=== PATIENT | female | born 1980 | race Caucasian/White ===

== ENCOUNTER 2016-09-06 14:00 | Emergency (ER) | payer MEDICAID ==
[~2016-09-06] VITALS: Ht 154.9 cm; Wt 63.5 kg
[~2016-09-06 14:00] MED LIST: CYCLOBENZAPRINE10 MG ORAL; FIORICET1 EA ORAL; IBUPROFEN400 MG ORAL; IBUPROFEN600 MG ORAL; NKM
[2016-09-06 14:06] VITALS: BP 122/79
[2016-09-06] MEDS ORDERED: NKM (14:10)
[2016-09-06] MEDS ORDERED: Bacitracin Oint UD TOPIC ONE (15:00)
[2016-09-06] MEDS ORDERED: Lidocaine 1% MPF 10mg/ml 5ml IM ONE (15:00)
[2016-09-06] MEDS ORDERED: CEPHALEXIN500 MG ORAL (15:44)
[2016-09-06 16:10] VITALS: BP 127/75
--- NOTE | 2016-09-06 16:53 | Diagnostic Imaging Report ---
Indication: PAIN Technique: 3 views right hand Comparison: none Findings: There is a nondisplaced fracture of the proximal aspect of the fourth distal phalanx. No other acute fractures. No dislocations. The joint spaces are preserved Impression: Positive for fourth distal phalangeal fracture Findings discussed by phone with Dr. Brown the emergency room at the time of interpretation
--- NOTE | 2016-09-07 09:55 | Emergency Room Report ---
History of Present Illness General Chief Complaint: Laceration Source: Patient Present Illness HPI The patient is a 36 yo F presenting for L ring finger pain after having the finger get stuck in her car door today. The patient states the door closed onto the finger and she is now experiencing a 8/10 dull ache to the area. No radiation of pain. Patient does admit to numbness of the finger tip. The patient noticed bleeding at that time. The patient denies any other symptoms. The patient states last tetanus shot was less than 10 years prior. Allergies: Coded Allergies: No Known Allergies (Unverified , 01/10/15) Patient History Past Medical History: see triage record Pertinent Family History: none Last Menstrual Period: 09/04/2016 Immunizations: UTD Reviewed Nursing Documentation: PMH: Agreed, PSxH: Agreed Nursing Documentation-PMH Past Medical History: No Stated History Review of Systems All Other Systems: negative except mentioned in HPI Physical Exam Vital Signs Date Time Temp Pulse Resp B/P Pulse Ox O2 Delivery O2 Flow Rate FiO2 09/06/16 14:06 98.1 58 14 122/79 98 Room Air Sp02 EP Interpretation: reviewed, normal General Appearance: no apparent distress, alert, GCS 15, non-toxic Head: normocephalic, atraumatic Eyes: bilateral eye PERRL, bilateral eye normal inspection ENT: hearing grossly normal, normal pharynx, no angioedema, normal voice Musculoskeletal: normal range of motion, tender - TTP over distal L 4th digit Neurologic: alert, oriented x3, responsive, motor strength/tone normal, sensory intact, speech normal Psychiatric: judgement/insight normal, memory normal, mood/affect normal, no suicidal/homicidal ideation Reflexes: 3+ bicep (R), 3+ bicep (L), 3+ tricep (R), 3+ tricep (L), 3+ knee (R) , 3+ knee (L) Skin: no rash, well hydrated, normal turgor, laceration - L 4th digit distal to DIPJ and proximal to nailbed: 3cm linear superficial laceration. No avulsion of skin. Unable to probe to bone. Nail not involved. Lymphatic: no adenopathy Procedures Splinting Splinting : Consent: Verbal Location: L hand 4th finger Pre-Made Type: metal Splint: finger Pre-Proc Neuro Vasc Exam: normal Post-Proc Neuro Vasc Exam: normal Patient Tolerated: Well Complications: None Laceration/Wound Repair Laceration/Wound Repair : Consent: Verbal Wound Location: upper extremity - L hand 4th finger Wound's Depth, Shape: superficial, linear Wound Length (cm): 3 Wound Explored: clean Irrigated w/ Saline (ccs): 300 Betadine Prep?: Yes Anesthesia: 1% Lidocaine - digital block Volume Anesthetic (ccs): 4 Wound Debrided: minimal Wound Repaired With: sutures Suture Size/Type: 5:0, proline Number of Sutures: 4 Layer Closure?: No Sterile Dressing Applied?: Yes Splint Applied?: Yes Type of Splint Applied: metal finger Sling Applied?: No Patient Tolerated: Well Complications: None Medical Decision Making PA Attestation Dr. Brown is my supervising physician. Patient management was discussed with my supervising physician Diagnostic Impression: Primary Impression: Open fracture of finger ER Course The patient is a 36 yo F presenting for L ring finger pain Ddx considered include but not limited to fracture, tendon/ligament injury, avulsion, nerve damage PE: vitals WNL. L 4th digit distal to DIPJ and proximal to nailbed: 3cm linear superficial laceration. No avulsion of skin. Unable to probe to bone. Nail not involved.. No subungual hematoma. SILT. Xray of hand showas fracture of distal L 4th phalanx The wound was irrigated with pressured normal saline and cleaned with betadine. A 27g needle was used to administer 4mL of lidocaine w.o epi for digital block. 4 sutures were placed with 5-0 prolene. The wound was well approximated and the patient tolerated the procedure well. The wound was then cleaned and bacitracin was applied. A metal splint was applied to the finger. Patient given a shot of Rocephin due to possible open fracture. The patient is NY'ed home with prescription for keflex and will FU with PMD. ER precautions given and suture instructions given. Other X-Ray Diagnostic Results Other X-Ray Diagnostic Results : X-Ray Ordered: L hand Date: Sep 06, 2016 EP Interpretation: Yes Findings: other - fourth distal phalangeal fracture Number of Views: 3 PA Scribe Text I'm acting as scribe for my supervising physician. My supervising physician's interpretation of the L hand xrays are there are is a fracture of the 4th distal phalanx Last Vital Signs Date Time Temp Pulse Resp B/P Pulse Ox O2 Delivery O2 Flow Rate FiO2 09/06/16 16:10 52 16 127/75 99 Room Air 09/06/16 14:06 98.1 Status: improved Disposition: HOME, SELF-CARE Condition: Improved Scripts Cephalexin* (KEFLEX*) 500 Mg Capsule 500 MG ORAL EVERY 12 HOURS, #14 CAP 0 Refills Prov: JERONIMO COVINGTON 09/06/16 Patient Instructions: Laceration Care, Adult, Finger Fracture Additional Instructions: I discussed my findings with the patient. All questions and concerns have been answered. Treatment and medication compliance have been addressed. I advised the patient that they need to follow up with PMD in 7 days for wound check and suture removal. If you are unable to see PMD, return to the ED in 7 days. Return to ED if pain remains or worsens, you notice discharge from the wound, the wound continues to bleed, the suture/s fall out, you notice a fever or chills, or for any reason. Patient is advised to keep the wound clean and dry. Patient verbalized understanding of discharge instructions. JERONIMO COVINGTON Sep 07, 2016 09:55
== END 2016-09-06 16:10 | disposition home or self-care (01) ==
LOC: EMR 14:30
DX: S62.665B Nondisplaced fracture of distal phalanx of left ring finger, initial encounter for open fracture (principal); W23.0XXA Caught, crushed, jammed, or pinched between moving objects, initial encounter; Y92.810 Car as the place of occurrence of the external cause
CPT/HCPCS: 12002; 29280; 73130; 96372; 99284; J0696; Z7502

== ENCOUNTER 2016-09-13 23:30 | Emergency (ER) | payer MEDICAID ==
[~2016-09-13] VITALS: Ht 154.9 cm; Wt 63.5 kg
[~2016-09-13 23:30] MED LIST changes: +CEPHALEXIN500 MG ORAL
--- NOTE | 2016-09-14 00:13 | Emergency Room Report ---
History of Present Illness General Chief Complaint: Wound Recheck/Suture Removal Source: Patient Present Illness HPI Is a 36-year-old female who is here for wound check. She had a laceration and tuft fracture of the right fourth ring finger. This occur last week. Doing much better. Still has some numbness. No redness or drainage. Allergies: Coded Allergies: No Known Allergies (Unverified , 01/10/15) Patient History Past Medical History: see triage record, old chart reviewed Past Surgical History: none Pertinent Family History: none Social History: Denies: smoking Last Menstrual Period: TWO WEEKS AGO Now: No : 6 Immunizations: other Reviewed Nursing Documentation: PMH: Agreed, PSxH: Agreed Nursing Documentation-PMH Past Medical History: No Stated History Review of Systems Eye: Denies: blurred vision, eye pain ENT: Denies: ear pain, nose congestion, throat swelling Respiratory: Denies: cough, shortness of breath Cardiovascular: Denies: chest pain, palpitations Gastrointestinal: Denies: abdominal pain, diarrhea, nausea, vomiting Musculoskeletal: Denies: back pain, joint pain Skin: Denies: rash Neurological: Denies: headache, numbness Endocrine: Denies: increased thirst, increased urine Hematologic/Lymphatic: Denies: easy bruising All Other Systems: negative except mentioned in HPI Physical Exam Vital Signs Date Time Temp Pulse Resp B/P Pulse Ox O2 Delivery O2 Flow Rate FiO2 09/13/16 23:33 98.1 80 20 120/88 98 Room Air vitals normal Sp02 EP Interpretation: reviewed, normal General Appearance: well appearing, no apparent distress, alert Head: normocephalic, atraumatic Eyes: bilateral eye EOMI, bilateral eye PERRL ENT: hearing grossly normal, normal pharynx Neck: full range of motion, supple, no meningismus Respiratory: chest non-tender, lungs clear, normal breath sounds Cardiovascular #1: regular rate, rhythm, no murmur Gastrointestinal: normal bowel sounds, non tender, no mass, no organomegaly, no bruit, non-distended Musculoskeletal: back normal, gait/station normal, normal range of motion, other - Right fourth finger: Wound healing well. No infection. Psychiatric: mood/affect normal Skin: warm/dry Procedures Additional Procedure Procedure Narrative Procedure; suture removal. Indication: Scheduled removal of laceration. Description: I removed the for suture with a small scissors. She tolerated procedure without a problem. No palpitation. Medical Decision Making Diagnostic Impression: Primary Impression: Encounter for removal of sutures ER Course Patient here for suture removal. No infection. Healing well. Last Vital Signs Date Time Temp Pulse Resp B/P Pulse Ox O2 Delivery O2 Flow Rate FiO2 09/13/16 23:33 98.1 80 20 120/88 98 Room Air Status: improved Disposition: HOME, SELF-CARE Condition: Stable Referrals: [facility],REFERRING (PCP) Patient Instructions: Wound Check Additional Instructions: Followup with your doctor as needed. Return if worse. IZABEL WALTERS M.D. Sep 14, 2016 00:13
[2016-09-14 00:18] VITALS: BP 120/88
== END 2016-09-14 00:19 | disposition home or self-care (01) ==
LOC: EMR 23:56
DX: S61.214D Laceration without foreign body of right ring finger without damage to nail, subsequent encounter (principal); Z48.02 Encounter for removal of sutures
CPT/HCPCS: 99281

== ENCOUNTER 2017-01-14 14:24 | Emergency (ER) | payer MEDICAID ==
[~2017-01-14] VITALS: Ht 152.4 cm; Wt 63.5 kg
[2017-01-14 15:25] VITALS: BP 124/81
[2017-01-14] MEDS ORDERED: Metoclopramide 10mg/2ml Inj IM ONE (15:30)
[2017-01-14] MEDS ORDERED: Ketorolac 30mg Inj IM ONE (15:30)
[2017-01-14] MEDS ORDERED: DiphenhydrAMINE 50mg/ml Inj IM ONE (15:30)
[2017-01-14] MEDS ORDERED: IMITREX50 MG ORAL (15:40)
[2017-01-14 15:45] VITALS: BP 124/81
--- NOTE | 2017-01-14 20:57 | Emergency Room Report ---
History of Present Illness General Chief Complaint: Headache Source: Patient Present Illness HPI The patient is a 36-year-old female with a history of migraine headaches presenting for headache for the past 2 days. Pain is described as an 8/10 dull ache to the front of the head and radiates to the back of the head. She does admit to photophobia. She states that this feels similar to past migraines. She has not tried any medications. She denies any other symptoms including N, V , F, chills, SOB, CP, dizziness, blurred vision, neck pain/stiffness Allergies: Coded Allergies: No Known Allergies (Unverified , 01/10/15) Patient History Past Medical History: see triage record Pertinent Family History: none Last Menstrual Period: 12/23/16 Now: No - COMPLETE HYSTERECTOMY : 6 Para: 6 Reviewed Nursing Documentation: PMH: Agreed, PSxH: Agreed Nursing Documentation-PMH Past Medical History: No Stated History Review of Systems All Other Systems: negative except mentioned in HPI Physical Exam Vital Signs Date Time Temp Pulse Resp B/P Pulse Ox O2 Delivery O2 Flow Rate FiO2 01/14/17 14:43 98.2 71 16 124/81 98 Room Air Sp02 EP Interpretation: reviewed, normal General Appearance: no apparent distress, alert, GCS 15, non-toxic Head: normocephalic, atraumatic Eyes: bilateral eye PERRL, bilateral eye normal inspection ENT: hearing grossly normal, normal pharynx, no angioedema, normal voice Neck: full range of motion, supple/symm/no masses Respiratory: chest non-tender, lungs clear, normal breath sounds, speaking full sentences Cardiovascular #1: regular rate, rhythm, no edema Musculoskeletal: back normal, gait/station normal, normal range of motion, non- tender Neurologic: alert, oriented x3, responsive, motor strength/tone normal, sensory intact, speech normal Psychiatric: judgement/insight normal, memory normal, mood/affect normal, no suicidal/homicidal ideation Skin: normal color, no rash, warm/dry, well hydrated Lymphatic: no adenopathy Medical Decision Making PA Attestation Dr. Lamb is my supervising physician. Patient management was discussed with my supervising physician Diagnostic Impression: Primary Impression: Migraine Qualified Codes: G43.909 - Migraine, unspecified, not intractable, without status migrainosus ER Course The patient is a 36-year-old female with a history of migraine headaches presenting for headache Differential diagnoses include but not limited to Migraine, tension headache, meningitis, dehydration, among others PE: vitals WNL. NAD Head NC/AT HEENT unremarkable. Neck is soft and supple. Full AROM The patient is given IM Toradol, Reglan, and Benadryl. She feels better She'll be discharged home with prescription for Imitrex and needs to see PMD MANUEL. ER precautions given Last Vital Signs Date Time Temp Pulse Resp B/P Pulse Ox O2 Delivery O2 Flow Rate FiO2 01/14/17 15:45 98.2 16 124/81 98 Room Air 01/14/17 14:43 71 Status: improved Disposition: HOME, SELF-CARE Condition: Improved Scripts Sumatriptan Succinate* (IMITREX*) 50 Mg Tablet 50 MG ORAL DAILY PRN MIGRAINE, #10 TAB Prov: JERONIMO COVINGTON 01/14/17 Referrals: [facility],REFERRING (PCP) Patient Instructions: Migraine Headache Additional Instructions: I discussed my findings with the patient. All questions and concerns have been answered. Treatment and medication compliance have been addressed. I advised the patient that they need to follow up with PMD in 3-5 days. Return to ED if symptoms worsen, new symptoms arise, or if needed for any reason. Patient verbalized understanding of discharge instructions. JERONIMO COVINGTON Jan 14, 2017 20:57
== END 2017-01-14 15:45 | disposition home or self-care (01) ==
LOC: EMR 15:16
DX: G43.909 Migraine, unspecified, not intractable, without status migrainosus (principal)
CPT/HCPCS: 96372; 99283; J1200; J1885; J2765